=== PATIENT | female | born 1955 | race Caucasian/White ===

== ENCOUNTER → 2021-07-14 15:25 | Outpatient (BNVA) | payer MEDICARE, MEDICAID, SELFPAY | PROVIDERS: Family Provider Family Medicine; PCP Family Medicine; Visit Provider Specialist | DX: G35 Multiple sclerosis (principal); F02.80 Dementia in other diseases classified elsewhere, unspecified severity, without behavioral disturbance, psychotic disturbance, mood disturbance, and anxiety; F32.A Depression, unspecified | CPT/HCPCS: 99213; 99214 ==

== ENCOUNTER → 2022-07-11 14:08 | Outpatient (BNVA) | payer MEDICARE, MEDICAID, SELFPAY | PROVIDERS: Family Provider Family Medicine; PCP Family Medicine; Visit Provider Specialist | DX: G35 Multiple sclerosis (principal); M79.671 Pain in right foot; M79.672 Pain in left foot; F03.B0 Unspecified dementia, moderate, without behavioral disturbance, psychotic disturbance, mood disturbance, and anxiety | CPT/HCPCS: 99214 ==

== ENCOUNTER → 2022-12-13 09:02 | Outpatient (BNVA) | payer MEDICARE, MEDICAID, SELFPAY | PROVIDERS: Family Provider Family Medicine; PCP Family Medicine; Visit Provider Specialist | DX: G35 Multiple sclerosis (principal); G80.1 Spastic diplegic cerebral palsy | CPT/HCPCS: 99213 ==

== ENCOUNTER → 2023-07-06 09:38 | Outpatient (BNVA) | payer MEDICARE, MEDICAID, SELFPAY | PROVIDERS: Family Provider Family Medicine; PCP Family Medicine; Visit Provider Specialist | DX: G80.1 Spastic diplegic cerebral palsy (principal) | CPT/HCPCS: 64642; 64644; J0585 ==

== ENCOUNTER → 2023-10-12 07:55 | Outpatient (BNVA) | payer MEDICARE, MEDICAID, SELFPAY | PROVIDERS: Family Provider Family Medicine; PCP Family Medicine; Visit Provider Specialist | DX: G80.1 Spastic diplegic cerebral palsy (principal); G35 Multiple sclerosis; M54.50 Low back pain, unspecified; F32.A Depression, unspecified; G43.019 Migraine without aura, intractable, without status migrainosus | CPT/HCPCS: 64644; 99214; J0585 ==

== ENCOUNTER 2023-10-24 15:05 | Outpatient (CLI) | payer MEDICARE, MEDICAID, SELFPAY ==
--- NOTE | 2023-10-24 15:30 | CT_ITS ---
WS: [id number] CT HEAD TECHNIQUE: Noncontrast CT of the head obtained from the skullbase to the vertex. CLINICAL INFORMATION: G80.1 - Spastic diplegic cerebral palsy COMPARISON: MRI 2016 DLP: 1168.[address] scans at [facility] use at least one of these dose optimization techniques: automated e xposure control; mA and/or kV adjustment per patient size (includes targeted exams where dose is matc hed to clinical indication); or iterative reconstruction. FINDINGS: No evidence of intracranial hemorrhage or mass effect. Ventricular system and basal cisterns are puga nt. Moderate supratentorial white matter changes likely due to a combination of chronic demyelinating plaques and small vessel disease given clinical history. Moderate parenchymal volume loss. Incidenta l dystrophic calcification along the anterior falx. Cavernous carotid calcification. Mild prominence of the ventricular system unchanged since 2016. White matter changes are similar in a ppearance. Paranasal sinuses and mastoid air cells are well aerated. .Normal visualized soft tissues. CT/CT head wo con* [id number] IMPRESSION: 1. No evidence of intracranial hemorrhage or mass effect. 2. Moderate to advanced supratentorial white matter changes likely combination of chronic demyelinating plaques given history of MS and small vessel disease. White matter changes are similar to 2016. 3. Moderate parenchymal volume loss. 4. Cavernous carotid calcification. 5. No acute intracranial findings.
== END 2023-10-24 15:06 | disposition home or self-care (01) ==
LOC: RAD 15:05
PROVIDERS: Family Provider Family Medicine; PCP Family Medicine; Visit Provider Specialist
DX: G80.1 Spastic diplegic cerebral palsy (principal); R93.0 Abnormal findings on diagnostic imaging of skull and head, not elsewhere classified; I65.29 Occlusion and stenosis of unspecified carotid artery
CPT/HCPCS: 70450

== ENCOUNTER 2023-12-29 20:59 | Emergency (ER) | payer MEDICARE, MEDICAID, SELFPAY ==
[2023-12-29 21:00] VITALS: BP 141/86; PULSE 92; TEMP 36.8; O2SAT 90; BMI 37.5
--- NOTE | 2023-12-29 21:15 | CTR_ITS ---
PROCEDURE INFORMATION: Exam: CT Head Without Contrast Exam date and time: 12/29/2023 9:49 PM Age: 68 years old Clinical indication: Injury or trauma; Blunt trauma (contusions or hematomas); Patient HX: EMS arrival from [facility] for unwitnessed fall out of bed. Not anticoagulated. History of cerebral palsy and ms. ; Additional info: Fall, possible head injury TECHNIQUE: Imaging protocol: Computed tomography of the head without contrast. Radiation optimization: All CT scans at this facility use at least one of these dose optimization techniques: automated exposure control; mA and/or kV adjustment per patient size (includes targeted exams where dose is matched to clinical indication); or iterative reconstruction. COMPARISON: CT head wo con* [id number] 10/24/2023 3:30 PM RADIATION DOSE METRICS: Total DLP (mGy-cm): 1127.58 FINDINGS: Brain: No acute intracranial hemorrhage, abnormal extra-axial fluid collection, mass effect, or midline shift. Moderate periventricular and subcortical white matter hypodensities. Anterior dural ossifications are noted. Cerebral ventricles: Prominence of the ventricles and sulci compatible with age-related global involutional changes. Paranasal sinuses: Visualized paranasal sinuses are grossly unremarkable. No air fluid levels. Mastoid air cells: Visualized mastoid air cells are well aerated. Bones: No acute fracture. Soft tissues: Soft tissue densities within the bilateral external auditory canals most compatible with soft tissue debris and/or cerumen. Vasculature: Atheromatous changes are seen within intracranial portions of the bilateral internal carotid arteries. CT/CT head wo con* [id number] IMPRESSION: 1. No acute intracranial hemorrhage. 2. Moderate periventricular and subcortical white matter hypodensities, findings are compatible with changes of moderate burden chronic small-vessel disease superimposed on chronic demyelinating plaques given patient's history of MS, however cannot exclude superimposed early subtle acute on chronic ischemic changes. Follow-up as clinically indicated.
--- NOTE | 2023-12-29 21:15 | XRR_ITS ---
PROCEDURE INFORMATION: Exam: XR Right Ankle Exam date and time: 12/29/2023 9:27 PM Age: 68 years old Clinical indication: Injury or trauma; Fall; Other: Pain, FX; Additional info: Pain RT ankle with lateral deformity TECHNIQUE: Imaging protocol: Radiologic exam of the right ankle. Views: 3 or more views. COMPARISON: No relevant prior studies available. FINDINGS: Bones/joints: Comminuted minimally to mildly displaced fracture of the distal right tibial metadiaphysis. Comminuted minimally to mildly displaced spiral fracture of the distal fibular metadiaphysis in the region of the syndesmosis. Cannot exclude minimally displaced fracture of the medial malleolus. Soft tissues: Soft tissue swelling of the right ankle secondary to the aforementioned findings. XR/XR ankle RT min 3V* [id number] IMPRESSION: 1. Comminuted minimally to mildly displaced fractures of the distal tibia and fibula metadiaphysis. 2. Cannot exclude minimally displaced fracture of the medial malleolus.
--- NOTE | 2023-12-29 21:15 | XRR_ITS ---
PROCEDURE INFORMATION: Exam: XR Chest Exam date and time: 12/29/2023 9:24 PM Age: 68 years old Clinical indication: Dyspnea; Additional info: Hypoxemia, fall TECHNIQUE: Imaging protocol: Radiologic exam of the chest. Views: 1 view. COMPARISON: CR XR KUB [id number] 08/09/2017 10:36 AM FINDINGS: Lungs: No consolidation. Pleural spaces: No pleural effusion. No pneumothorax. Heart/Mediastinum: No cardiomegaly. Bones/joints: No acute fracture. XR/XR chest 1V portable [id number] IMPRESSION: No acute cardiopulmonary findings.
--- NOTE | 2023-12-29 21:15 | XRR_ITS ---
PROCEDURE INFORMATION: Exam: XR Right Hip Exam date and time: 12/29/2023 9:29 PM Age: 68 years old Clinical indication: Injury or trauma; Fall; Other: Pain; Additional info: Pain, fall RT hip and back pain TECHNIQUE: Imaging protocol: Radiologic exam of the right hip. Views: 1 view hip with pelvis when performed. COMPARISON: CT abdomen pelvis wo con [id number] 06/11/2017 3:32 AM FINDINGS: Bones/joints: No definite acute fracture or dislocation is seen however exam sensitivity and specificity is significantly limited by technique and patient body habitus. Right hip orthopedic internal fixation hardware and osseous irregularities secondary chronic/healed fracture. Soft tissues: Grossly unremarkable. XR/XR hip RT 2-3V wo/w pel* [id number] IMPRESSION: No definite acute fracture or dislocation however exam sensitivity and specificity is significantly limited by technique and patient body habitus. A CT of the right hip is suggested for further evaluation if clinically indicated.
--- NOTE | 2023-12-29 21:28 | W.ED.FALL ---
HPI - Fall General: Chief Complaint: Fall Stated Complaint: Fall, R ankle deformity Time Seen by Provider: 12/29/23 21:03 Source: patient and EMS History of Present Illness: Patient is a morbidly obese 68-year-old female who resides at a prison facility and states that she stood up and her right ankle gave out from under her causing her to fall. She sustained an inversion injury to the right ankle with deformity noted by EMS upon arrival. She was in makeshift splint with a pillow upon arrival here. She complains of right hip and right ankle pain and right wrist pain . She denies any other systemic symptoms or complaints. she denies any head injury or loss of consciousness. No neck or back pain. No chest pain or shortness of breath. She denies any syncope. She has noted to be hypoxemic here with a pulse ox of around 88 to 90% on room air and does not wear supplemental oxygen. 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 Difficulty in walking, not elsewhere classified Personal history of urinary (tract) infections Radiculopathy, lumbar region Other chronic pain Other instability, right ankle Other instability, left ankle Foot drop, right foot Foot drop, left foot Periorbital cellulitis 2019-nCoV acute respiratory disease Morbid (severe) obesity due to excess calories Polyneuropathy in diseases classified elsewhere Other intervertebral disc degeneration, lumbosacral region Dementia in other diseases classified elsewhere, unspecified severity, with agitation Other idiopathic peripheral autonomic neuropathy Other specified dorsopathies, cervical region Cervicalgia Abnormal posture Contracture, right ankle Contracture, left ankle Age-related osteoporosis without current pathological fracture Other lack of coordination Unspecified dementia, unspecified severity, with agitation Anemia, unspecified Muscle weakness (generalized) Urinary calculus, unspecified Acute pyelonephritis Acute kidney failure, unspecified Urinary tract infection, site not specified Hydronephrosis with renal and ureteral calculous obstruction Neuromuscular dysfunction of bladder, unspecified Retention of urine, unspecified Multiple sclerosis Other disorders of bilirubin metabolism Schizophrenia, unspecified Schizoaffective disorder, unspecified Bipolar disorder, unspecified Major depressive disorder, single episode, unspecified Conduct disorder, childhood-onset type Unspecified osteoarthritis, unspecified site Neuralgia and neuritis, unspecified Hyperlipidemia, unspecified Social History Smoking and tobacco/nicotine status: never used tobacco/nicotine 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: 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 Physical Exam Const: COMMON NORMALS: no acute distress, alert and well nourished; negative for average body habitus GENERAL APPEARANCE: cooperative ORIENTATION/CONSCIOUSNESS: Yes awake OTHER: Morbidly obese 68-year-old female HENMT: COMMON NORMALS: normocephalic and atraumatic HEAD & SCALP: normocephalic and atraumatic Eye: COMMON NORMALS: Equal, round and reactive pupils present, EOMs intact bilaterally and conjunctivae normal CONJUNCTIVA: Yes conjunctivae normal PUPIL: Yes Equal, round and reactive pupils present Neck/C-Spine: GENERAL: Yes normal visual inspection Resp: COMMON NORMALS: normal respiratory effort, No retractions and No use of accessory muscles Cardio: COMMON NORMALS: regular rhythm and Peripheral pulses 2+ throughout RHYTHM: regular rhythm PERIPHERAL PULSES: Peripheral pulses 2+ throughout GI: COMMON NORMALS: Soft to palpation and non-tender PALPATION: Yes Soft to palpation Extremity: COMMON NORMALS: no pedal edema NARRATIVE EXTREMITY EXAM: right ankle ttp with swelling, medial inversion of the right foot, bilateral foot drop, NV intact distally, no open wounds, 2+ dp/pt pulses. Neuro: COMMON NORMALS: no focal motor deficits SENSORIUM/ORIENTATION: Yes alert Psych: COMMON NORMALS: mental status grossly normal Skin: COMMON NORMALS: no rashes or lesions noted GENERAL SKIN EXAM: no rashes or lesions noted Course Vital Signs: Vital signs: Vital Signs Temperature 98.2 F 12/29/23 21:00 Pulse Rate 90 12/29/23 21:44 Respiratory Rate 16 12/29/23 23:33 Blood Pressure 143/73 12/29/23 23:33 Pulse Oximetry 92 12/29/23 23:33 Oxygen Delivery Me thod Room Air 12/29/23 23:23 Oxygen Flow Rate 3 12/29/23 21:44 MDM - Fall Medical Decision Making Patient is a morbidly obese 68-year-old female who presents from the prison after a fall. Patient states that her right foot gave out from underneath her. Chart review shows she has a history of bilateral foot drop with a dystonic right foot. She has some medial inversion of the right foot however chart review seems to indicate this may be chronic. She has noticeable right ankle pain and swelling. She is neurovascular intact. She has a minimally displaced and comminuted distal tib-fib fracture. Images were reviewed with podiatry, Dr. Bray who was in agreement with short leg posterior splint and follow-up in clinic. Joint spaces were aligned despite her inversion of the right ankle. Head CT is negative for acute findings. Chest x-ray without any acute cardiopulmonary findings. Right wrist and right hip x-ray did not show any fracture or dislocation. She was mildly hypoxemic here however is unclear if this is due to just hypoventilation due to her obesity as well as a combination of pain medication that she received here. CTA of her chest was performed given her obesity, sedentary lifestyle, and other risk factors. CT is negative for PE or other acute pathology. She does have some chronic interstitial lung disease noted. Patient has short leg posterior splint applied to the right lower extremity. At this time I do not see indication for admission or transfer and think it is reasonable for her to be discharged back to the prison facility with a prescription for some pain medication and follow-up with Dr. Bray with orthopedics as an outpatient. Patient is completely agreeable to this plan and comfortable with such. Medical Records I reviewed the patient's medical records. Lab Data I reviewed the patient's lab results. 12/29/23 21:41 12/29/23 21:41 Radiology Impressions Ankle X-Ray 12/29/23 21:15 IMPRESSION: 1. Comminuted minimally to mildly displaced fractures of the distal tibia and fibula metadiaphysis. 2. Cannot exclude minimally displaced fracture of the medial malleolus. Chest X-Ray 12/29/23 21:15 IMPRESSION: No acute cardiopulmonary findings. Head CT 12/29/23 21:15 IMPRESSION: 1. No acute intracranial hemorrhage. 2. Moderate periventricular and subcortical white matter hypodensities, findings are compatible with changes of moderate burden chronic small-vessel disease superimposed on chronic demyelinating plaques given patient's history of MS, however cannot exclude superimposed early subtle acute on chronic ischemic changes. Follow-up as clinically indicated. Hip/Pelvis X-Ray 12/29/23 21:15 IMPRESSION: No definite acute fracture or dislocation however exam sensitivity and specificity is significantly limited by technique and patient body habitus. A CT of the right hip is suggested for further evaluation if clinically indicated. Wrist X-Ray 12/29/23 21:29 IMPRESSION: No acute fracture or dislocation. Chest CTA 12/29/23 22:46 IMPRESSION: 1. No main, lobar, or proximal segmental pulmonary arterial filling defects are seen. 2. Bilateral scattered ground-glass opacities with areas of decreased attenuation (mosaic attenuation). Findings are somewhat nonspecific, differential includes hypersensitivity pneumonitis, small airway disease / bronchiolitis, and asthma. Correlate and follow-up as clinically indicated. 3. Age-indeterminate superior endplate compression fracture of T11 and partially imaged age-indeterminate superior endplate compression vs burst fracture of T12. These findings are not present on the CT exam performed on 06/11/2017. Correlate and follow-up as clinically indicated. Laboratory Results WBC 14.66 10^3/uL (3.29-11.43) H 12/29/23 21:41 RBC 4.45 10^6/uL (3.85-5.65) 12/29/23 21:41 Hgb 14.20 g/dL (11.27-16.99) 12/29/23 21:41 Hct 46.8 % (36-47) 12/29/23 21:41 MCV 105.2 fl (85-98) H 12/29/23 21:41 MCH 31.9 pg (27-33) 12/29/23 21:41 MCHC 30.3 g/dL (30-55) 12/29/23 21:41 RDW 13.6 % (12.1-15.1) 12/29/23 21:41 Plt Count 183 10^3/cmm (157-399) 12/29/23 21:41 MPV 9.6 fL (7.4-10.4) 12/29/23 21:41 Neut % (Auto) 78.5 % 12/29/23 21:41 Lymph % (Auto) 12.2 % 12/29/23 21:41 [place] % (Auto) 8.2 % 12/29/23 21:41 Eos % (Auto) 0.4 % 12/29/23 21:41 Baso % (Auto) 0.4 % 12/29/23 21:41 Neut # (Auto) 11.50 10^3/uL (1.8-7.7) H 12/29/23 21:41 Lymph # (Auto) 1.8 10^3/uL (0.8-4.8) 12/29/23 21:41 [place] # (Auto) 1.2 10^3/uL (0.2-0.9) H 12/29/23 21:41 Eos # (Auto) 0.1 10^3/uL (0.0-0.8) 12/29/23 21:41 Baso # (Auto) 0.1 10^3/uL (0.0-0.1) 12/29/23 21:41 Nucleated RBC % (auto) 0 % 12/29/23 21:41 Nucleated RBCs # 0.0 /100WBC 12/29/23 21:41 Sodium 139 mmol/L (136-145) 12/29/23 21:41 Potassium 4.7 mmol/L (3.5-5.1) 12/29/23 21:41 Chloride 103 mmol/L (98-107) 12/29/23 21:41 Carbon Dioxide 27 mmol/L (22-29) 12/29/23 21:41 Anion Gap 13.7 (5-19) 12/29/23 21:41 BUN 12 mg/dL (8-23) 12/29/23 21:41 Creatinine 0.5 mg/dL (0.5-0.9) 12/29/23 21:41 GFR Calculation 123.1 mL/min (90-130) 12/29/23 21:41 Glucose 109 mg/dL (65-115) 12/29/23 21:41 Calculated Osmolality 288 mOsm/kg (285-295) 12/29/23 21:41 Calcium 9.0 mg/dL (8.5-10.5) 12/29/23 21:41 Total Bilirubin 0.4 mg/dL (0.15-1.2) 12/29/23 21:41 AST 20 U/L (0-32) 12/29/23 21:41 ALT 27 U/L (0-33) 12/29/23 21:41 Alkaline Phosphatase 225 U/L (35-105) H 12/29/23 21:41 Total Protein 7.5 g/dL (6.6-8.7) 12/29/23 21:41 Albumin 3.1 g/dL (3.5-5.2) L 12/29/23 21:41 Globulin 4.4 g/dL (1.3-4.6) 12/29/23 21:41 All radiology interpretation(s) finalized by discharge EKG Data EKG 1: EKG interpretation date: 12/30/23 EKG interpretation time: 23:45 Interpretation: Sinus tachycardia. Rate of [address] elevation or depressions. Significant artifact noted. Discharge Plan Discharge Patient Disposition: Home Clinical Impression: Fracture of distal end of right tibia, Fracture of distal end of fibula, Morbid obesity, Right wrist sprain, Acute pain of right hip Condition: Stable Prescriptions: New hydrocodone-acetaminophen 5-325 mg tablet 1 tab PO Q8H Qty: 14 0RF No Action Lactobacillus acidophilus 100 million cell capsule 100 mmu cells PO TID fexofenadine [Christin Allergy] 180 mg tablet 180 mg PO DAILY ammonium lactate 12 % cream 1 applic topical DAILY donepezil [Aricept] 10 mg tablet 10 mg PO DAILY cyanocobalamin (vitamin B-12) 2,500 mcg tablet 2,500 mcg PO DAILY sumatriptan succinate [Imitrex] 100 mg tablet 100 mg PO Q2H PRN Rx Instructions: do not exceed 2 doses per 24 hrs magnesium hydroxide [Milk of Magnesia] 400 mg/5 mL suspension 15 ml PO BID PRN guaifenesin [Mucinex] 600 mg tablet extended release 12hr 600 mg PO BID omeprazole magnesium [Prilosec OTC] 20 mg tablet,delayed release (DR/EC) 20 mg PO DAILY tramadol 50 mg tablet 50 mg PO BID PRN acetaminophen [Tylenol] 325 mg capsule 325 mg PO QID PRN cholecalciferol (vitamin D3) 50 mcg (2,000 unit) capsule 50 mcg PO DAILY aripiprazole [Abilify] 5 mg tablet 15 mg PO DAILY lidocaine HCl [Lidocaine Viscous] 2 % solution 1 applic topical ONCE Qty: 1 0RF lidocaine HCl [Lidocaine Viscous] 2 % solution 1 applic topical ONCE Qty: 1 0RF gabapentin 400 mg capsule 400 mg PO TID losartan 50 mg tablet 50 mg PO DAILY fluticasone propionate [Flonase Allergy Relief] 50 mcg/actuation spray,suspension 2 spray intranasal DAILY Rx Instructions: administer into each nostril loperamide [Imodium A-D] 2 mg capsule 2 mg PO Q4H PRN Rx Instructions: administer after each loose stool until symptoms controlled; do not exceed 8 mg per 24 hrs polyethylene glycol 3350 [Miralax] 17 gram/dose powder 4 g PO DAILY multivitamin Tablet 1 tab PO DAILY Natural Tears (PF) 0.1-0.3 % dropperette 1 drp ophthalmic (eye) TID PRN lidocaine [Salonpas (lidocaine)] 4 % adhesive patch,medicated 1 patch topical DAILY PRN baclofen 20 mg tablet 20 mg PO TID venlafaxine 75 mg tablet 75 mg PO DAILY Arginaid 4.5 gram-156 mg/9.2 gram powder in packet PO naloxone 0.4 mg/mL solution 0.4 mg SUBCUT Q2M PRN Rx Instructions: NTExceed 10 mg total dose/episode hydrocodone-acetaminophen 7.5-300 mg tablet 1 tab PO Q6H PRN lidocaine HCl [Lidocaine Viscous] 2 % solution 1 applic topical ONCE Qty: 1 0RF lidocaine HCl [Lidocaine Viscous] 2 % solution 1 applic topical ONCE Qty: 1 0RF lidocaine HCl [Lidocaine Viscous] 2 % solution 1 applic topical ONCE Qty: 1 0RF Discharge Orders: Discharge ED (Routine); Ordered 12/30/23 Ordered By: Ralf Aaron Referrals: Steffanie Fall DO [Primary Care Provider] - Randell Bray DPM [Physician] - 1-3 days (Follow-up with Dr. Bray next week. Contact his office on Monday for an appointment.) Patient Instructions: Opioid Safety, Pain Management, Splint Care (ED) Activity Restrictions/Additional Instructions: Patient should not bear weight to the right lower extremity until further evaluated by orthopedics and directed by them. Take pain medication as directed. Keep your right leg elevated to help with pain and swelling. Return to the ER for any new or worsening symptoms or any other concerns. Coding Level of Care Code ED Reweaver for Leeanne Antoine
--- NOTE | 2023-12-29 21:29 | XRR_ITS ---
PROCEDURE INFORMATION: Exam: XR Right Wrist Exam date and time: 12/29/2023 9:34 PM Age: 68 years old Clinical indication: Injury or trauma; Fall; Other: Pain; Additional info: Pain RT wrist after fall TECHNIQUE: Imaging protocol: Radiologic exam of the right wrist. Views: 3 or more views. COMPARISON: No relevant prior studies available. FINDINGS: Bones/joints: No acute fracture or dislocation. Mild age-appropriate degenerative changes of the right wrist. Minimal negative ulnar variance. Soft tissues: Grossly unremarkable. XR/XR wrist RT min 3V* [id number] IMPRESSION: No acute fracture or dislocation.
[2023-12-29 21:44] VITALS: BP 147/88; PULSE 90; RESP 18; O2SAT 94
[2023-12-29 22:04] LABS: Alanine Aminotransferase 27 U/L (0-33); Albumin Level 3.1 g/dL (3.5-5.2); Alkaline Phosphatase 225 U/L (35-105); Anion Gap 13.7 (5-19); Aspartate Amino Transferase 20 U/L (0-32); Blood Urea Nitrogen 12 mg/dL (8-23); Carbon Dioxide 27 mmol/L (22-29); Chloride 103 mmol/L (98-107); Creatinine Clr Calc Pharmacy 86.7244; Globulin 4.4 g/dL (1.3-4.6); Glomerular Filtration Rate 123.1 mL/min (90-130); Glucose 109 mg/dL (65-115); Osmolality Calculated 288 mOsm/kg (285-295); Potassium 4.7 mmol/L (3.5-5.1); Sodium 139 mmol/L (136-145); Total Bilirubin 0.4 mg/dL (0.15-1.2); Total Protein 7.5 g/dL (6.6-8.7)
[2023-12-29 22:05] LABS: Basophils # 0.1 10^3/uL (0.0-0.1); Basophils % 0.4 %; Eosinophils # 0.1 10^3/uL (0.0-0.8); Eosinophils % 0.4 %; Hematocrit 46.8 % (36-47); Lymphocytes # 1.8 10^3/uL (0.8-4.8); Lymphocytes % 12.2 %; Mean Corpuscular HGB Conc 30.3 g/dL (30-55); Mean Corpuscular Hemoglobin 31.9 pg (27-33); Mean Corpuscular Volume 105.2 fl (85-98); Mean Platelet Volume 9.6 fL (7.4-10.4); Monocytes # 1.2 10^3/uL (0.2-0.9); Monocytes % 8.2 %; Neutrophils % 78.5 %; Nucleated Red Blood Cells % 0 %; Platelet Count 183 10^3/cmm (157-399); Red Blood Count 4.45 10^6/uL (3.85-5.65); Red Cell Distribution Width 13.6 % (12.1-15.1); White Blood Count 14.66 10^3/uL (3.29-11.43)
[2023-12-29 22:27] VITALS: RESP 18
[2023-12-29] MEDS: morphine 4 mg/mL SDV 1 mL IVP (22:27)
--- NOTE | 2023-12-29 22:46 | CTR_ITS ---
PROCEDURE INFORMATION: Exam: CTA Chest With Contrast Exam date and time: 12/29/2023 10:59 PM Age: 68 years old Clinical indication: Pain; Shortness of breath; Chest pressure; Patient HX: Chest discomfort with hypoxia. ; Additional info: Hypoxia, chest pain TECHNIQUE: Imaging protocol: Computed tomographic angiography of the chest with contrast. Exam focused on the arteries. 3D rendering (Not supervised by radiologist): MIP and/or 3D reconstructed images were created by the technologist. Radiation optimization: All CT scans at this facility use at least one of these dose optimization techniques: automated exposure control; mA and/or kV adjustment per patient size (includes targeted exams where dose is matched to clinical indication); or iterative reconstruction. Contrast material: OMNI 350; Contrast volume: 75 ml; Contrast route: INTRAVENOUS (IV); COMPARISON: CR (CHEST, ) 12/29/2023 9:24 PM RADIATION DOSE METRICS: Total DLP (mGy-cm): 653.26 FINDINGS: Limitations: Exam sensitivity and specificity is limited by patient motion artifact Pulmonary arteries: No main, lobar, or proximal segmental pulmonary emboli are seen. Aorta: No aortic aneurysm. No aortic dissection. Lungs: No consolidation. No masses. Bilateral ground-glass opacities with focal areas of decreased attenuation. Minimal bibasilar atelectasis and/or scarring. Pleural spaces: No pneumothorax. No pleural effusion. Heart: No cardiomegaly. No pericardial effusion. Lymph nodes: No pathologically enlarged lymph nodes. Bones/joints: Age-indeterminate superior endplate compression fracture of T11 and partially imaged age-indeterminate superior endplate compression vs burst fracture of T12. Soft tissues: Grossly unremarkable. CT/CT angio chest PE protcl [id number] IMPRESSION: 1. No main, lobar, or proximal segmental pulmonary arterial filling defects are seen. 2. Bilateral scattered ground-glass opacities with areas of decreased attenuation (mosaic attenuation). Findings are somewhat nonspecific, differential includes hypersensitivity pneumonitis, small airway disease / bronchiolitis, and asthma. Correlate and follow-up as clinically indicated. 3. Age-indeterminate superior endplate compression fracture of T11 and partially imaged age-indeterminate superior endplate compression vs burst fracture of T12. These findings are not present on the CT exam performed on 06/11/2017. Correlate and follow-up as clinically indicated.
[2023-12-29] MEDS: iohexol 350 mg/mL 500 mL Btl (per mL) IV (23:04)
[2023-12-29 23:23] VITALS: BP 157/106; RESP 14; O2SAT 91
[2023-12-29 23:33] VITALS: BP 143/73; RESP 16; O2SAT 92
--- NOTE | 2023-12-29 23:39 | ECG_ITS ---
[facility] Test Date: 2023-12-29 Pat Name: Martha Richardson Department: Room: Gender: Female Supervisor Nurse: : 1955 Requested By: Ralf Aaron Order Number: [id number] Adam MD: Mariano Sosa M.D. Measurements Intervals [place] Rate: 101 P: 64 LA: 170 QRS: 23 QRSD: 84 T: 67 QT: 337 QTc: 437 Interpretive Statements SINUS TACHYCARDIA SEPTAL MYOCARDIAL INFARCTION , OF INDETERMINATE AGE [40+ ms Q WAVE IN V1/V2] Compared to ECG 06/11/2017 02:00:16 Myocardial infarct finding now present Sinus rhythm no longer present Electronically Signed On 12-30-2023 6:59:00 CDT by Mariano Sosa M.D. [email or web address]
[2023-12-30] VITALS (8 sets, daily range): BP systolic 123–170; BP diastolic 65–101; PULSE 92–107; RESP 14–21; O2SAT 88–94
== END 2023-12-30 09:36 | disposition home or self-care (01) ==
PROVIDERS: Emergency Provider Student in an Organized Health Care Education/Training Program; Family Provider Family Medicine; PCP Family Medicine
DX: S82.451A Displaced comminuted fracture of shaft of right fibula, initial encounter for closed fracture (principal); S82.251A Displaced comminuted fracture of shaft of right tibia, initial encounter for closed fracture; E66.01 Morbid (severe) obesity due to excess calories; Z68.37 Body mass index [BMI] 37.0-37.9, adult; R00.0 Tachycardia, unspecified; M25.551 Pain in right hip; S63.501A Unspecified sprain of right wrist, initial encounter; F03.90 Unspecified dementia, unspecified severity, without behavioral disturbance, psychotic disturbance, mood disturbance, and anxiety; G35 Multiple sclerosis; E78.5 Hyperlipidemia, unspecified; W18.39XA Other fall on same level, initial encounter
CPT/HCPCS: 29515; 36415; 70450; 71045; 71275; 73110; 73502; 73610; 80053; 85025; 93005; 96374; 99285; J2270; Q9967

== ENCOUNTER → 2024-01-04 14:55 | Outpatient (BNVA) | payer MEDICARE, MEDICAID, SELFPAY | PROVIDERS: Family Provider Family Medicine; PCP Family Medicine; Visit Provider Podiatrist Foot & Ankle Surgery | DX: S82.831A Other fracture of upper and lower end of right fibula, initial encounter for closed fracture (principal); S82.391A Other fracture of lower end of right tibia, initial encounter for closed fracture; W19.XXXA Unspecified fall, initial encounter; M24.574 Contracture, right foot | CPT/HCPCS: 99204 ==

== ENCOUNTER 2024-01-05 09:19 | Emergency (ER) | payer MEDICARE, MEDICAID, SELFPAY ==
[2024-01-05 09:22] VITALS: BP 132/79; PULSE 93; RESP 19; TEMP 36.7; O2SAT 93
--- NOTE | 2024-01-05 09:24 | XRR_ITS ---
PROCEDURE INFORMATION: Exam: XR Chest Exam date and time: 01/05/2024 9:48 AM Age: 68 years old Clinical indication: Cough and dyspnea and shortness of breath; Additional info: Dyspnea/cough TECHNIQUE: Imaging protocol: Radiologic exam of the chest. Views: 1 view. COMPARISON: CT angio chest PE protcl [id number] 12/29/2023 10:59 PM FINDINGS: Lungs: Unremarkable. No consolidation. Pleural spaces: Unremarkable. No pleural effusion. No pneumothorax. Heart/Mediastinum: Unremarkable. No cardiomegaly. Bones/joints: Unremarkable. XR/XR chest 1V portable [id number] IMPRESSION: No acute findings.
--- NOTE | 2024-01-05 09:30 | ECG_ITS ---
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 Measurements Intervals [place] Rate: 97 P: 42 DE: 169 QRS: 6 QRSD: 84 T: 60 QT: 343 QTc: 436 Interpretive Statements SINUS RHYTHM LOW QRS VOLTAGE IN PRECORDIAL LEADS [QRS DEFLECTION < 1.0 mV IN CHEST LEADS] Compared to ECG 12/29/2023 23:39:32 Low QRS voltage now present Sinus tachycardia no longer present Myocardial infarct finding no longer present Electronically Signed On 01-05-2024 11:51:01 CDT by Mariano Sosa M.D. [id number] f
--- NOTE | 2024-01-05 09:49 | W.ED.SOB ---
HPI - SOB/Dyspnea General: Chief Complaint: Shortness of Breath/Dyspnea Stated Complaint: sob Time Seen by Provider: 01/05/24 09:22 History of Present Illness: HPI Narrative: 68-year-old female presents to the emergency room via intermediate presents to the emergency room with complaints of shortness of breath report of desaturation to 82%. Patient usually does not require oxygen now requiring 2 L. She has a history of dementia recently had right ankle surgery secondary to a fracture. She also complaining of some right knee pain. 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 Difficulty in walking, not elsewhere classified Personal history of urinary (tract) infections Radiculopathy, lumbar region Other chronic pain Other instability, right ankle Other instability, left ankle Foot drop, right foot Foot drop, left foot Periorbital cellulitis 2019-nCoV acute respiratory disease Morbid (severe) obesity due to excess calories Polyneuropathy in diseases classified elsewhere Other intervertebral disc degeneration, lumbosacral region Dementia in other diseases classified elsewhere, unspecified severity, with agitation Other idiopathic peripheral autonomic neuropathy Other specified dorsopathies, cervical region Cervicalgia Abnormal posture Contracture, right ankle Contracture, left ankle Age-related osteoporosis without current pathological fracture Other lack of coordination Unspecified dementia, unspecified severity, with agitation Anemia, unspecified Muscle weakness (generalized) Urinary calculus, unspecified Acute pyelonephritis Acute kidney failure, unspecified Urinary tract infection, site not specified Hydronephrosis with renal and ureteral calculous obstruction Neuromuscular dysfunction of bladder, unspecified Retention of urine, unspecified Multiple sclerosis Other disorders of bilirubin metabolism Schizophrenia, unspecified Schizoaffective disorder, unspecified Bipolar disorder, unspecified Major depressive disorder, single episode, unspecified Conduct disorder, childhood-onset type Unspecified osteoarthritis, unspecified site Neuralgia and neuritis, unspecified Hyperlipidemia, unspecified Social History Smoking and tobacco/nicotine status: never used tobacco/nicotine Housing: [facility] Physical Exam Const: GENERAL APPEARANCE: cooperative ORIENTATION/CONSCIOUSNESS: Yes awake HENMT: COMMON NORMALS: normocephalic, atraumatic and hearing grossly normal bilaterally HEAD & SCALP: normocephalic and atraumatic Resp: COMMON NORMALS: normal respiratory effort, No retractions, No use of accessory muscles and clear to auscultation bilaterally AUSCULTATION: clear to auscultation bilaterally Cardio: COMMON NORMALS: regular rate, regular rhythm and No murmurs present (Cardio) RATE: regular rate RHYTHM: regular rhythm GI: COMMON NORMALS: Soft to palpation and No hepatosplenomegaly present AUSCULTATION: Yes normoactive bowel sounds PALPATION: Yes Soft to palpation, No Tenderness to palpation present (GI), No Guarding due to palpation present (GI) and Yes No hepatosplenomegaly present Extremity: COMMON NORMALS: normal to inspection, capillary refill normal, no clubbing, cyanosis or edema, no calf tenderness and no pedal edema Skin: COMMON NORMALS: no rashes or lesions noted GENERAL SKIN EXAM: no rashes or lesions noted Course Vital Signs: Vital signs: Vital Signs Temperature 98.0 F 01/05/24 09:22 Pulse Rate 90 01/05/24 14:36 Respiratory Rate 15 01/05/24 14:36 Blood Pressure 143/76 01/05/24 14:36 Pulse Oximetry 90 01/05/24 14:36 Oxygen Delivery Me thod Nasal Cannula 01/05/24 13:51 Oxygen Flow Rate 2 01/05/24 13:51 MDM - SOB/Dyspnea Medical Decision Making Labs and imaging reviewed EKG reviewed no acute changes. EKG does not show any acute ST elevation. Troponins trended normal. Patient did have significant cystitis. Will start her on oral antibiotics she was given cefdinir 300 mg twice daily is also given 1 g of Rocephin here. Will discharge her home return if she has further problems. Lab Data 01/05/24 10:00 01/05/24 10:00 Labs/Radiology: Radiology Impressions Chest X-Ray 01/05/24 09:24 IMPRESSION: No acute findings. Knee X-Ray 01/05/24 10:02 IMPRESSION: No acute findings. Laboratory Results WBC 9.26 10^3/uL (3.29-11.43) 01/05/24 10:00 RBC 4.03 10^6/uL (3.85-5.65) 01/05/24 10:00 Hgb 13.00 g/dL (11.27-16.99) 01/05/24 10:00 Hct 40.6 % (36-47) 01/05/24 10:00 MCV 100.7 fl (85-98) H 01/05/24 10:00 MCH 32.3 pg (27-33) 01/05/24 10:00 MCHC 32.0 g/dL (30-55) 01/05/24 10:00 RDW 13.6 % (12.1-15.1) 01/05/24 10:00 Plt Count 300 10^3/cmm (157-399) 01/05/24 10:00 MPV 9.0 fL (7.4-10.4) 01/05/24 10:00 Neut % (Auto) 72.2 % 01/05/24 10:00 Lymph % (Auto) 16.3 % 01/05/24 10:00 [place] % (Auto) 9.3 % 01/05/24 10:00 Eos % (Auto) 1.0 % 01/05/24 10:00 Baso % (Auto) 0.9 % 01/05/24 10:00 Neut # (Auto) 6.69 10^3/uL (1.8-7.7) 01/05/24 10:00 Lymph # (Auto) 1.5 10^3/uL (0.8-4.8) 01/05/24 10:00 [place] # (Auto) 0.9 10^3/uL (0.2-0.9) 01/05/24 10:00 Eos # (Auto) 0.1 10^3/uL (0.0-0.8) 01/05/24 10:00 Baso # (Auto) 0.1 10^3/uL (0.0-0.1) 01/05/24 10:00 Nucleated RBC % (auto) 0 % 01/05/24 10:00 Nucleated RBCs # 0.0 /100WBC 01/05/24 10:00 Specimen Type Arterial 01/05/24 09:58 Sample Site Radial, right 01/05/24 09:58 ABG pH 7.41 (7.35-7.45) 01/05/24 09:58 ABG pCO2 50.1 mmHg (35-45) H 01/05/24 09:58 ABG pO2 52.6 mmHg (80.0-100.0) L 01/05/24 09:58 ABG HCO3 32.0 mmol/L (22-26) H 01/05/24 09:58 ABG O2 Saturation 87.4 01/05/24 09:58 ABG Base Excess 6.2 mmol/L (-2.0-2.0) H 01/05/24 09:58 Alex Test Pos 01/05/24 09:58 A-a O2 Gradient 4.8 mmHg (5-10) L 01/05/24 09:58 Hematocrit 39.3 % (37-47) 01/05/24 09:58 Hgb O2 Saturation 85.5 % (95-100) L 01/05/24 09:58 Carboxyhemoglobin 1.3 %THgb (0.4-20.1) 01/05/24 09:58 Methemoglobin 0.9 % (0.4-1.5) 01/05/24 09:58 Total Hemoglobin 12.8 g/dL (12-16) 01/05/24 09:58 Sodium 142.0 mmol/L (131-143) 01/05/24 09:58 Potassium 3.9 mmol/L (3.5-5.0) 01/05/24 09:58 Glucose 97.0 mg/dL (70-115) 01/05/24 09:58 Ionized Calcium 1.2 mmol/L (1.1-1.4) 01/05/24 09:58 O2 Delivery Device Nc 01/05/24 09:58 O2 Liters/Min 4.0 % 01/05/24 09:58 Ranch Manager ID [place] 01/05/24 09:58 Sodium 140 mmol/L (136-145) 01/05/24 10:00 Potassium 4.0 mmol/L (3.5-5.1) 01/05/24 10:00 Chloride 102 mmol/L (98-107) 01/05/24 10:00 Carbon Dioxide 28 mmol/L (22-29) 01/05/24 10:00 Anion Gap 14.0 (5-19) 01/05/24 10:00 BUN 10 mg/dL (8-23) 01/05/24 10:00 Creatinine 0.6 mg/dL (0.5-0.9) 01/05/24 10:00 GFR Calculation 99.7 mL/min (90-130) 01/05/24 10:00 Glucose 97 mg/dL (65-115) 01/05/24 10:00 Calculated Osmolality 289 mOsm/kg (285-295) 01/05/24 10:00 Calcium 8.6 mg/dL (8.5-10.5) 01/05/24 10:00 Total Bilirubin 0.4 mg/dL (0.15-1.2) 01/05/24 10:00 AST 24 U/L (0-32) 01/05/24 10:00 ALT 30 U/L (0-33) 01/05/24 10:00 Alkaline Phosphatase 203 U/L (35-105) H 01/05/24 10:00 Troponin T Baseline 10 ng/L (0-10) 01/05/24 10:00 Troponin T 120 Minute 10.86 ng/L (0-10) H 01/05/24 11:22 Delta Troponin T 0.86 ABS# (0-10) 01/05/24 11:22 Total Protein 7.0 g/dL (6.6-8.7) 01/05/24 10:00 Albumin 3.0 g/dL (3.5-5.2) L 01/05/24 10:00 Globulin 4.0 g/dL (1.3-4.6) 01/05/24 10:00 Urine Color Yellow (Yellow) 01/05/24 10:28 Urine Appearance Cloudy (CLEAR) A 01/05/24 10:28 Urine pH 6.5 (5-7) 01/05/24 10:28 Ur Specific [place] 1.014 (1.005-1.030) 01/05/24 10:28 Urine Protein Negative (Negative) 01/05/24 10:28 Urine Glucose (UA) Negative (Normal) 01/05/24 10:28 Urine Ketones Negative (Negative) 01/05/24 10:28 Urine Blood Negative (Negative) 01/05/24 10:28 Urine Nitrate Positive (Negative) A 01/05/24 10:28 Urine Bilirubin Negative (Negative) 01/05/24 10:28 Urine Urobilinogen 1.0 mg/dL (Negative) 01/05/24 10:28 Ur Leukocyte Esterase 3+ (Negative) A 01/05/24 10:28 Urine RBC 0-2 /hpf (0-2) 01/05/24 10:28 Urine WBC 51-100 /hpf (0-5) H 01/05/24 10:28 Ur Squamous Epith Cells 0-5 /hpf (0-5) 01/05/24 10:28 Amorphous Sediment Not Reportable 01/05/24 10:28 Urine Bacteria 4+ /hpf (NONE) H 01/05/24 10:28 Hyaline Casts 8.67 /lpf 01/05/24 10:28 All radiology interpretation(s) finalized by discharge Discharge Plan Discharge Patient Disposition: Home Clinical Impression: Cystitis, Morbid obesity, Sleep apnea Condition: Stable Prescriptions: New cefdinir 300 mg capsule 300 mg PO BID Qty: 14 0RF No Action fexofenadine [Christin Allergy] 180 mg tablet 180 mg PO DAILY ammonium lactate 12 % cream 1 applic topical DAILY donepezil [Aricept] 10 mg tablet 10 mg PO DAILY cyanocobalamin (vitamin B-12) 2,500 mcg tablet 2,500 mcg PO DAILY sumatriptan succinate [Imitrex] 100 mg tablet 100 mg PO Q2H PRN (Reason: Migraine Headache) Rx Instructions: do not exceed 2 doses per 24 hrs magnesium hydroxide [Milk of Magnesia] 400 mg/5 mL suspension 30 ml PO BID PRN (Reason: Constipation) omeprazole magnesium [Prilosec OTC] 20 mg tablet,delayed release (DR/EC) 20 mg PO DAILY tramadol 50 mg tablet 100 mg PO BID PRN (Reason: Pain) acetaminophen [Tylenol] 325 mg capsule 325 - 650 mg PO Q4H PRN (Reason: PAIN OR ELEVATED TEMP) cholecalciferol (vitamin D3) 50 mcg (2,000 unit) capsule 50 mcg PO DAILY gabapentin 400 mg capsule 400 mg PO TID losartan 50 mg tablet 50 mg PO DAILY fluticasone propionate [Flonase Allergy Relief] 50 mcg/actuation spray,suspension 2 spray intranasal DAILY PRN (Reason: ALLERGIES) loperamide [Imodium A-D] 2 mg capsule 2 mg PO Q4H PRN (Reason: Diarrhea) Rx Instructions: administer after each loose stool until symptoms controlled; do not exceed 8 mg per 24 hrs polyethylene glycol 3350 [Miralax] 17 gram/dose powder 4 g PO DAILY multivitamin Tablet 1 tab PO DAILY Natural Tears (PF) 0.1-0.3 % dropperette 2 drp ophthalmic (eye) TID PRN (Reason: Dry Eyes) lidocaine [Salonpas (lidocaine)] 4 % adhesive patch,medicated 1 patch topical DAILY PRN (Reason: Pain) baclofen 20 mg tablet 20 mg PO TID venlafaxine 75 mg tablet 75 mg PO DAILY Arginaid 4.5 gram-156 mg/9.2 gram powder in packet 9.2 g PO BID naloxone 0.4 mg/mL solution 0.4 mg SUBCUT Q2M PRN (Reason: Opioid Overdose) Rx Instructions: NTExceed 10 mg total dose/episode hydrocodone-acetaminophen 7.5-300 mg tablet 1 tab PO Q6H PRN (Reason: Pain) Calcium 600 600 mg calcium (1,500 mg) Tablet 600 mg PO DAILY Mucinex DM 30-600 mg Tablet Extended Release 12 Hr 1 tab PO Q12H PRN (Reason: COUGH/CONGESTION) Lactobacillus acidophilus Capsule 100 mmu cells PO TID aripiprazole 15 mg tablet 15 mg PO DAILY Prolia 60 mg/mL syringe 60 mg SUBCUT DAILY Rx Instructions: ON May AND NOVEMBER Discharge Orders: Discharge ED (Routine); Ordered 01/05/24 Ordered By: Sean Phelps Referrals: Steffanie Fall DO [Primary Care Provider] - Discharge Diet: Usual diet Discharge Activity: Resume usual activity Patient Instructions: Opioid Safety, Pain Management Activity Restrictions/Additional Instructions: Thank you for choosing [facility] for your healthcare needs today. It is very important that you follow up as instructed or that you return to the Emergency Department should you have concerns or if your condition changes or worsens in any way. You were seen in the emergency room with complaint of shortness of breath you do have oxygen desaturation when you are sleeping suspect you have sleep apnea that should be evaluated as an outpatient. Your chest x-ray was normal. Urine did show signs of cystitis there is no elevation of your white blood cell count. Recommend you start on cefdinir 300 mg 1 pill twice a day for 7 days urine culture has been ordered. Coding Level of Care Code ED Credit Collections Specialist for Leeanne Antoine
--- NOTE | 2024-01-05 10:02 | XRR_ITS ---
PROCEDURE INFORMATION: Exam: XR Right Knee Exam date and time: 01/05/2024 10:18 AM Age: 68 years old Clinical indication: Pain; Knee; Right TECHNIQUE: Imaging protocol: Radiologic exam of the right knee. Views: 3 views. COMPARISON: CR (LOW EXM, ) 12/29/2023 9:27 PM FINDINGS: Bones/joints: Normal. Soft tissues: Normal. XR/XR knee RT 3V* [id number] IMPRESSION: No acute findings.
[2024-01-05 10:06] LABS: Basophils # 0.1 10^3/uL (0.0-0.1); Basophils % 0.9 %; Eosinophils # 0.1 10^3/uL (0.0-0.8); Hematocrit 40.6 % (36-47); Lymphocytes # 1.5 10^3/uL (0.8-4.8); Lymphocytes % 16.3 %; Mean Corpuscular Hemoglobin 32.3 pg (27-33); Mean Corpuscular Volume 100.7 fl (85-98); Monocytes # 0.9 10^3/uL (0.2-0.9); Monocytes % 9.3 %; Neutrophils # 6.69 10^3/uL (1.8-7.7); Neutrophils % 72.2 %; Nucleated Red Blood Cells % 0 %; Platelet Count 300 10^3/cmm (157-399); Red Blood Count 4.03 10^6/uL (3.85-5.65); Red Cell Distribution Width 13.6 % (12.1-15.1); White Blood Count 9.26 10^3/uL (3.29-11.43)
[2024-01-05 10:10] LABS: ABG PCO2 50.1 mmHg (35-45); ABG PH Result 7.41 (7.35-7.45); Alveolar-Arterial Oxygen Gradi 4.8 mmHg (5-10); Arterial Blood Gas Hematocrit 39.3 % (37-47); Base Excess ABG 6.2 mmol/L (-2.0-2.0); Blood Gas Allen Test Pos; Blood Gas Operator Identificat WALCI; Blood Gas Sample Site Radial, right; Blood Gas Sample Type Arterial; Carboxyhemoglobin 1.3 %THgb (0.4-20.1); HGB O2 Sat 85.5 % (95-100); Ionized Calcium Level - ABG 1.2 mmol/L (1.1-1.4); Methemoglobin 0.9 % (0.4-1.5); Oxygen Device NC; Oxygen Saturation ABG 87.4; PO2 ABG 52.6 mmHg (80.0-100.0); Potassium Level - ABG 3.9 mmol/L (3.5-5.0); Total Hemoglobin 12.8 g/dL (12-16)
[2024-01-05 10:26] LABS: Troponin(5th) Baseline 10 ng/L (0-10)
[2024-01-05 10:30] LABS: Alanine Aminotransferase 30 U/L (0-33); Aspartate Amino Transferase 24 U/L (0-32); Blood Urea Nitrogen 10 mg/dL (8-23); Calcium 8.6 mg/dL (8.5-10.5); Carbon Dioxide 28 mmol/L (22-29); Glomerular Filtration Rate 99.7 mL/min (90-130); Glucose 97 mg/dL (65-115); Total Bilirubin 0.4 mg/dL (0.15-1.2)
[2024-01-05 10:33] LABS: Charge for UA Resulting for Rev
[2024-01-05 10:45] LABS: Bilirubin Urine Negative (Negative); Blood Urine Negative (Negative); Glucose Urine UA Negative (Normal); Ketones Urine Negative (Negative); Leukocyte Esterase Urine 3+ (Negative); Nitrate Urine Positive (Negative); Protein Urine Negative (Negative); Specific Gravity, Urine 1.014 (1.005-1.030); Urine Appearance Cloudy (CLEAR); Urine Color Yellow (Yellow); pH Urine 6.5 (5-7)
[2024-01-05 10:48] LABS: Bacteria Urine 4+ /hpf; Hyaline Casts Urine 8.67 /lpf; RBC Urine 0-2 /hpf (0-2); Squamous Epithelial Cell Urine 0-5 /hpf (0-5); WBC Urine 51-100 /hpf (0-5)
[2024-01-05 11:10] VITALS: BP 120/67; PULSE 103; RESP 13; O2SAT 94
--- NOTE | 2024-01-05 11:49 | ECG_ITS ---
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 Measurements Intervals [place] Rate: 97 P: 34 TN: 177 QRS: -5 QRSD: 86 T: 49 QT: 347 QTc: 441 Interpretive Statements SINUS RHYTHM Compared to ECG 01/05/2024 09:30:23 No significant changes Electronically Signed On 01-05-2024 11:56:45 CDT by Mariano Sosa M.D. [email or web address] [email or web address] [email or web address] In/[id number]
[2024-01-05 11:55] VITALS: BP 143/89; PULSE 103; RESP 15; O2SAT 93
[2024-01-05] MEDS: cefTRIAXone 1,000 mg SDV 1000 MG IVP (11:55)
[2024-01-05 11:56] LABS: Troponin 5 2HR 10.86 ng/L (0-10); Troponin 5 2HR Delta 0.86 ABS# (0-10)
[2024-01-05 12:00] LABS: Chloride 102 mmol/L (98-107); Osmolality Calculated 289 mOsm/kg (285-295); Sodium 140 mmol/L (136-145)
[2024-01-05 12:02] LABS: Alkaline Phosphatase 203 U/L (35-105)
[2024-01-05 13:51] VITALS: BP 141/92; PULSE 90; O2SAT 90
[2024-01-05 14:36] VITALS: BP 143/76; PULSE 90; RESP 15; O2SAT 90
== END 2024-01-05 14:38 | disposition home or self-care (01) ==
PROVIDERS: Emergency Provider Family Medicine; PCP Family Medicine
DX: N30.90 Cystitis, unspecified without hematuria (principal); E66.01 Morbid (severe) obesity due to excess calories; Z68.39 Body mass index [BMI] 39.0-39.9, adult; G47.30 Sleep apnea, unspecified; F03.90 Unspecified dementia, unspecified severity, without behavioral disturbance, psychotic disturbance, mood disturbance, and anxiety
CPT/HCPCS: 36415; 36600; 71045; 73562; 80051; 80053; 81003; 81015; 82330; 82805; 84484; 85025; 87040; 87150; 87205; 93005; 96374; 99285; J0696